=== PATIENT | male | born 1980 | race Caucasian/White ===

== ENCOUNTER 2016-12-17 14:11 | Emergency (ER) | payer BC ==
--- NOTE | 2016-12-17 15:54 | US ---
ULTRASOUND EXAMINATION OF the right lower extremity WITH DOPPLER HISTORY: Pain FINDINGS: Examination of the right leg was performed from the groin to the calf region. All visualized segmen ts including common femoral, proximal greater saphenous, superficial femoral, popliteal and calf vei ns appear patent with good compressibility and augmentation. There is no evidence of deep vein thro mbosis. IMPRESSION: No evidence of a DVT.
--- NOTE | 2016-12-17 16:12 | EDM.PDOC ---
ED HPI Trauma - General Chief Complaint: Lower Extremity Injury/Pain Stated Complaint: BLOOD CLOT IN LEG Time Seen by Provider: 12/17/16 14:35 Source: Reports: Patient History Limitations: Reports: No limitations - History of Present Illness INITIAL COMMENTS - FREE TEXT/NARRATIVE: HISTORY AND PHYSICAL: History of present illness: [Comes to the ER c/o R knee pain. Was diagnosed with DVT left lower extremity in October 2016, and started on Coumadin. INR was 1.3 at anticoagulation clinic this morning. It had some pain to his right medial knee on and off for the past couple of weeks. It feels like the strain to his right knee he is concerned that with a subtherapeutic INR the pain may be from blood clot. History of ulcerative colitis diagnosed at age 17. No numbness or tingling. No pain in his calf ankle or foot. Follows regularly with the anticoagulation clinic denies chest pain shortness of breath difficulty breathing. No history of PE. Denies fever and chills.] Review of systems: As per history of present illness and below otherwise all systems reviewed and negative. Past medical history: As per history of present illness and as reviewed below otherwise noncontributory. Surgical history: As per history of present illness and as reviewed below otherwise noncontributory. Social history: No reported history of drug or alcohol abuse. Family history: As per history of present illness and as reviewed below otherwise noncontributory. Physical exam: HEENT: Atraumatic, normocephalic. oral mucous members are pink and moist. Lungs: Clear to auscultation, no wheezing crackles or rales. breath sounds equal bilaterally. Heart: S1S2, regular rate and rhythm. negative for clicks, rubs, or JVD. Abdomen: Soft, nondistended, nontender. Genitourinary: Deferred. Rectal: Deferred. Extremities: No swelling or cyanosis to feet or lower legs. No cords palpated and no calf pain. Atraumatic and without deformity. Mild ecchymosis to right medial knee. Point tenderness to superior medial patella mild effusion noted. Neurovascular unremarkable. Gait abnormalities. Neuro: Awake, alert, oriented. Motor and sensory unremarkable throughout. Exam nonfocal. Diagnostics: [Venous Doppler ultrasound right lower extremity] Impression: [Right knee pain] Plan: [Discussed with patient that his ultrasound is negative for DVT. Recommend he increase his Coumadin as instructed by the anticoagulation clinic. Followup with primary care provider for evaluation of right knee pain. All questions are answered and concerns are addressed. He is in agreement to this plan.] Definitive disposition and diagnosis as appropriate pending reevaluation and review of above. Allergies/ADRs: Allergies No Known Allergies Allergy (Verified 12/17/16 14:40) Home Medications: Ambulatory Orders Warfarin [Coumadin] 2.5 mg PO DAILY@1400 12/17/16 [Confirmed 12/17/16] Past Medical History HEENT History: Reports: Impaired vision Cardiovascular History: Reports: Blood clots/VTE/DVT Respiratory History: Reports: None Gastrointestinal History: Reports: Other (see below) Other Gastrointestinal History: hx ulcerative colitis Genitourinary History: Reports: None Musculoskeletal History: Reports: None Neurological History: Reports: None Psychiatric History: Reports: None Endocrine/Metabolic History: Reports: None Hematologic History: Reports: None Immunologic History: Reports: None Oncologic (Cancer) History: Reports: None Dermatologic History: Reports: None - Infectious Disease History Infectious Disease History: Reports: Chicken pox - Past Surgical History Head Surgeries/Procedures: Reports: None HEENT Surgical History: Reports: None Cardiovascular Surgical History: Reports: None GI Surgical History: Reports: Hernia repair/other Male Surgical History: Reports: None Musculoskeletal Surgical History: Reports: None Oncologic Surgical History: Reports: None Social & Family History - Family History Family Medical History: Noncontributory Cardiac: Reports: [place] OBGYN: Reports: - Tobacco Use Smoking Status *Q: Current Every Day Smoker Years of Tobacco use: 1 Packs/Tins Daily: 1 Used Tobacco, but Quit: Yes Month Tobacco Last Used: January Second Hand Smoke Exposure: No - Caffeine Use Caffeine Use: Reports: Coffee, Energy drinks, Soda - Alcohol Use Days Per Week of Alcohol Use: 1 Number of Drinks Per Day: 2 Total Drinks Per Week: 2 - Recreational Drug Use Recreational Drug Use: No Review of Systems - Review of Systems Review Of Systems: ROS reveals no pertinent complaints other than HPI. Trauma Exam - Physical Exam Exam: See Below Course - Vital Signs Last Recorded V/S: Last Vital Signs Temp 97.3 F 12/17/16 16:14 Pulse 69 12/17/16 16:14 Resp 16 12/17/16 16:14 BP 115/68 12/17/16 16:14 Pulse Ox 97 12/17/16 16:14 Departure - Departure Time of Disposition: 16:15 Disposition: Home, Self-Care 01 Condition: good Clinical Impression: Right knee pain Qualifiers: Chronicity: acute Qualified Code(s): M25.561 - Pain in right knee Instructions: Knee Pain Referrals: Hi Clinton MD [Primary Care Provider] - Forms: ED Department Discharge Additional Instructions: The following information is given to patients seen in the emergency department who are being discharged to home. This information is to outline your options for follow-up care. We provide all patients seen in our emergency department with a follow-up referral. The need for follow-up, as well as the timing and circumstances, are variable depending upon the specifics of your emergency department visit. If you don't have a primary care physician on staff, we will provide you with a referral. We always advise you to contact your personal physician following an emergency department visit to inform them of the circumstance of the visit and for follow-up with them and/or the need for any referrals to a consulting specialist. The emergency department will also refer you to a specialist when appropriate. This referral assures that you have the opportunity for follow-up care with a specialist. All of these measure are taken in an effort to provide you with optimal care, which includes your follow-up. Under all circumstances we always encourage you to contact your private physician who remains a resource for coordinating your care. When calling for follow-up care, please make the office aware that this follow-up is from your recent emergency room visit. If for any reason you are refused follow-up, please contact the [facility] emergency department at and asked to speak to the emergency department charge nurse. [facility] [address] [place] [id number] Followup with your primary care provider at the clinic listed above if continued complaints of knee pain. Your ultrasound of your leg is negative for blood clot. Take Coumadin as instructed by your PCP. Return to ER as needed as discussed.
[2016-12-17 17:56] VITALS: BP 112/68
== END 2016-12-17 16:31 | disposition home or self-care (01) ==
LOC: MW.ED 14:11
DX: M25.561 Pain in right knee (principal); F17.210 Nicotine dependence, cigarettes, uncomplicated; Z79.01 Long term (current) use of anticoagulants; Z86.718 Personal history of other venous thrombosis and embolism
CPT/HCPCS: 93971-26-RT; 93971-RT; 99283; 99284-25